=== PATIENT | female | born 1995 | race African-American/Black ===

== ENCOUNTER 2023-01-27 20:43 | Emergency (ER) | payer OTHER ==
[2023-01-27] MEDS ORDERED: Acetaminophen 500 MG TAB ONE (21:03)
== END 2023-01-27 21:05 | disposition home or self-care (01) ==
LOC: BURERS 20:43
DX: O9A.212 Injury, poisoning and certain other consequences of external causes complicating pregnancy, second trimester (principal); S39.012A Strain of muscle, fascia and tendon of lower back, initial encounter; Z3A.20 20 weeks gestation of pregnancy; X50.1XXA Overexertion from prolonged static or awkward postures, initial encounter
CPT/HCPCS: 99283

== ENCOUNTER 2024-02-27 21:52 | Emergency (ER) | payer MEDICAID, OTHER | END 2024-02-27 22:40 | disposition home or self-care (01) | LOC: BURERS 21:52 | DX: J20.9 Acute bronchitis, unspecified (principal); Z86.16 Personal history of COVID-19 | CPT/HCPCS: 87081; 87430; 99283 ==

== ENCOUNTER 2024-03-11 10:20 | Emergency (ER) | payer MEDICAID ==
[~2024-03-11 10:20] MED LIST: Iopamidol 370 76% 100 ML VIAL ONE
[2024-03-11 11:02] LABS: Bilirubin Moderate (Negative); Blood, Urine Negative (Negative); Clarity Slightly Cloudy (Clear); Glucose, Urine (Dipstick) Negative (Negative); Ketone, Urine Trace mg/dL (Negative); Leukocyte Small (Negative); Nitrite Negative (Negative); Protein, Urine (Dipstick) 30 mg/dL (Neg-Trace); Specific Gravity, Urine 1.025 (1.005-1.030); Urobilinogen 0.2 mg/dL (Less than 2)
[2024-03-11 11:05] LABS: #Basophils 0.1 thou/uL (0.0-0.2); #Lymphocytes 2.9 thou/uL (1.20-3.40); #Monocytes 0.9 thou/uL (0.11-0.59); %Basophils 0.4 % (0.0-1.0); %Eosinophils 0.1 % (0.0-10.0); %Lymphocytes 18.1 % (21.0-51.0); %Monocytes 5.8 % (0.0-10.0); %Neutrophils 75.6 % (42.0-75.0); Hematocrit 38.7 % (36.0-47.0); Hemoglobin 12.7 g/dL (12.0-16.0); Mean Corpuscular HGB CONC 32.8 g/dL (32.0-36.0); Mean Corpuscular Hemoglobin 27.1 pg (27.0-31.0); Mean Corpuscular Volume 82.6 fl (78.0-98.0); Mean Platelet Volume 9.2 fL (7.4-10.4); Platelet Count 215 10x3/uL (130-400); Pregnancy Test - Urine (BHCG) Negative (Negative); RBC Distribution Width 13.7 % (11.5-14.5); Red Blood Cell (RBC) Count 4.68 mill/uL (4.20-5.40); White Blood Cell (WBC) Count 15.8 10x3/uL (4.8-10.8)
[2024-03-11 11:06] LABS: Pregu Control Background? CLEAR/WHITE (CLR/WHITE); Pregu Control Bar Appear? YES (CONTROL BAR); Specific Gravity 1.025 (1.002-1.036)
[2024-03-11 11:18] LABS: ALT (SGPT) 12 U/L (8-55); AST (SGOT) 9 U/L (5-34); Albumin 3.7 g/dL (3.5-5.0); Alkaline Phosphatase 80 U/L (40-110); Anion Gap 14 mmol/L (10-20); BUN (Urea Nitrogen) 4 mg/dL (7.0-18.7); Bacteria/HPF 3+ HPF (None Seen); Bilirubin, Total 0.5 mg/dL (0.2-1.2); CAUTI Indications for Culture Dysuria,urgency,freq; Calc. Creatinine Clearance 0 mL/min (70-130); Calcium 9.1 mg/dL (7.8-10.44); Carbon Dioxide 22 mmol/L (22-29); Chloride 106 mmol/L (98-107); Estimated GFR 117; Globulin 3.1 g/dL (2.4-3.5); Glucose 93 mg/dL (70-105); Lipase 14 U/L (8-78); Potassium 3.7 mmol/L (3.5-5.1); Protein, Total 6.8 g/dL (6.0-8.3); RBC/HPF None Seen HPF (0-3); Sodium 138 mmol/L (136-145); Squamous Epithelial 21-50 HPF (0-3)
[2024-03-11 11:21] LABS: Urine Culture Reflex No No
== END 2024-03-11 12:48 | disposition home or self-care (01) ==
LOC: BURERS 10:20
DX: K52.9 Noninfective gastroenteritis and colitis, unspecified (principal)
CPT/HCPCS: 36415; 74177; 80053; 81001; 81025; 83690; 85025; Q9967